=== PATIENT | female | born 1955 | race African-American/Black ===

== ENCOUNTER 2019-12-15 08:53 | Outpatient (CLI) | payer BC ==
--- NOTE | 2019-12-15 11:27 | RAD ---
RIGHT ELBOW 4 VIEWS: Date: 12/15/2019 HISTORY: Elbow pain. 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 There is spurring from the coronoid and olecranon. No fracture. No joint effusion. IMPRESSION: No acute process identified. POS: [facility]
--- NOTE | 2019-12-15 11:29 | RAD ---
RIGHT SHOULDER 2 VIEWS: Date: 12/15/2019 HISTORY: Right shoulder pain. Cannot raise arm above head. FINDINGS: Mild AC and glenohumeral joint osteoarthrosis change. No fracture or dislocation. IMPRESSION: No acute fracture or dislocation. POS: [facility]
== END 2019-12-15 08:54 | disposition home or self-care (01) ==
LOC: BICRAD 08:53
PROVIDERS: ATTEND Internal Medicine
DX: M25.521 Pain in right elbow (principal); M25.511 Pain in right shoulder
CPT/HCPCS: 36415; 80053; 80061; 82043; 83036; 84443; 85025; 86706